=== PATIENT | male | born 1965 | race Caucasian/White ===

== ENCOUNTER → 2017-12-15 14:29 | Outpatient (CLI) | payer OTHER, SELFPAY ==
[2017-12-15 15:41] LABS: PSA,Total - Annual Screen 1.68 ng/mL (0.00-4.00)
== END ==
PROVIDERS: Family Provider Family Medicine; PCP Family Medicine; Visit Provider Family Medicine
DX: Z00.00 Encounter for general adult medical examination without abnormal findings (principal)
CPT/HCPCS: 36415; 84153; G0103

== ENCOUNTER → 2018-02-02 16:37 | Outpatient (CLI) | payer OTHER, SELFPAY ==
[2018-02-02 17:56] LABS: Protein, Urine (Random) 42.3 mg/dL (<11.9); Protein:Creat Ratio 355 mg/g CRE (0-200)
[2018-02-02 17:58] LABS: Albumin, Serum 3.7 g/dL (3.2-5.0); BUN 16 mg/dL (7-18); BUN/Creat Ratio 20.8 RATIO (10-20); Calcium,Total 9.1 mg/dL (8.5-10.1); Chloride 104 mmol/L (98-107); Creatinine, Serum 0.77 mg/dL (0.70-1.30); EST Glomerular Filtration Rate 113 mL/min (>60); Est Glom Filt Rate - Afr Amer 136 mL/min (>60); Glucose 84 mg/dL (74-106); Phosphorus 3.3 mg/dL (2.5-4.9); Potassium 3.9 mmol/L (3.5-5.1); Sodium Level 136 mmol/L (136-145)
== END ==
PROVIDERS: Family Provider Family Medicine; PCP Family Medicine; Referring Provider Internal Medicine Nephrology; Visit Provider Internal Medicine Nephrology
DX: R80.9 Proteinuria, unspecified (principal)
CPT/HCPCS: 36415; 80069; 82570; 84156

== ENCOUNTER → 2018-02-16 14:38 | Outpatient (CLI) | payer OTHER, SELFPAY ==
--- NOTE | 2018-02-16 14:52 | CT_ITS ---
STUDY: CT ABDOMEN AND PELVIS WITHOUT CONTRAST REASON FOR EXAM: Male, 52 years old. Right-sided pain with urination RADIATION DOSAGE (If Supplied By Facility): CTDIvol = ( 14.59 ) mGy, DLP = ( 715.82 ) mGycm TECHNIQUE: Transaxial images were obtained from the dome of the diaphragm to the symphysis pubis without oral contrast, and without intravenous contrast. Sagittal and coronal images were reconstructed. Individualized dose optimization techniques were used for this CT. COMPARISON: 05/29/2013 FINDINGS: The visualized lung bases are unremarkable. The visualized portions of the heart are within normal limits. Normal liver. The gallbladder is contracted. Normal spleen. Normal pancreas. Normal bilateral adrenal glands. Mild right hydronephrosis is noted with mild right hydroureter. There is a stone just at the right UVJ measuring 3.6 mm. There is 2 other punctate nonobstructing right nephrolith. Otherwise, normal right kidney. Normal left kidney without evidence of stones or obstruction. Normal visualized stomach. Normal small intestine. There are multiple colonic diverticula consistent with diverticulosis. The appendix is visualized and appears normal. There is diffuse atherosclerotic calcification of the abdominal aorta, without a demonstrated aneurysm. Normal inferior vena cava. Normal retroperitoneum. Normal urinary bladder. There are prostatic calcifications. Normal abdominal wall. There are diffuse degenerative changes of the visualized lumbar spine. CT/Abdomen/Pelvis without Cont IMPRESSION: Mild right hydronephrosis with right hydroureter. Stone at the right UVJ as detailed above. Several other punctate nonobstructing right nephroliths. Electronically Signed: Eriberto Oro DO at 11:46 EDT Tel , Service support ,
== END ==
PROVIDERS: Family Provider Family Medicine; PCP Family Medicine; Referring Provider Internal Medicine Nephrology; Visit Provider Internal Medicine Nephrology
DX: N20.0 Calculus of kidney (principal)
CPT/HCPCS: 74176

== ENCOUNTER → 2018-08-06 | Outpatient (CLI) | payer OTHER, SELFPAY ==
[2018-08-06 14:13] LABS: Color, Urine Yellow (Yellow); Glucose, Dipstick Normal (Normal); Ketone-Dipstick 15 mg/dl (Negative); Leukocyte Esterase-Dipstick Negative /ul (Negative); Nitrite-Dipstick Negative (Negative); Occult Blood-Urine Negative /ul (Negative); Protein-Dipstick 30 mg/dl (Negative); Urine Bilirubin Dipstick Negative (Negative); Urine Clarity Clear (Clear); Urine Urobilinogen Normal (Normal)
[2018-08-06 14:17] LABS: Absolute Lymphocyte Count 1.33 X10^3/ul (0.83-4.51); Absolute Neutrophil Count 3.3 X10^3/uL (2.0-7.7); Eosinophil# 0.06 X10^3/uL; Eosinophils% 1.2 % (0-5); Hematocrit 42.9 % (40-54); Hemoglobin 14.5 g/dl (13.0-16.5); Lymphocyte # 1.33 X10^3/ul (4.0); Lymphocyte % 26.1 % (19-41); Mean Corp Hgb Conc 33.8 g/gl (32-36); Mean Corpuscular Volume 97.5 fL (80-94); Mean Platelet Vol. 9.8 fl (6.2-12.0); Monocyte# 0.39 X10^3/uL; Monocyte% 7.7 % (0-10); Neutrophil # 3.31 X10^3/uL (2.7-7.7); POSITIVE COUNT NO; POSITIVE DIFFERENTIAL NO; POSITIVE MORPHOLOGY NO; Platelet Count 188 K/mm3 (150-450); RBC Distribution Width CV 12.8 % (11.6-14.6); RBC Distribution Width SD 45.7 fl (35.1-43.9); White Blood Count 5.1 K/mm3 (4.4-11.0)
[2018-08-06 14:31] LABS: Albumin, Serum 3.7 g/dL (3.2-5.0); BUN 20 mg/dL (7-18); BUN/Creat Ratio 24.9 RATIO (10-20); Calcium,Total 8.9 mg/dL (8.5-10.1); Chloride 105 mmol/L (98-107); EST Glomerular Filtration Rate 107 mL/min (>60); Est Glom Filt Rate - Afr Amer 129 mL/min (>60); Glucose 84 mg/dL (74-106); Phosphorus 2.7 mg/dL (2.5-4.9); Potassium 4.2 mmol/L (3.5-5.1); Sodium Level 139 mmol/L (136-145)
== END | disposition home or self-care (01) ==
LOC: MTLAB 12:49
PROVIDERS: Family Provider Family Medicine; PCP Family Medicine; Referring Provider Internal Medicine Nephrology; Visit Provider Internal Medicine Nephrology
DX: N20.2 Calculus of kidney with calculus of ureter (principal)
CPT/HCPCS: 36415; 80069; 81002; 83735; 85025

== ENCOUNTER → 2018-10-25 16:28 | Outpatient (CLI) | payer OTHER, SELFPAY ==
--- NOTE | 2018-10-25 16:32 | RAD_ITS ---
STUDY: X-RAY - LEFT KNEE REASON FOR EXAM: Male, 53 years old. Orthopedic evaluation TECHNIQUE: 4 view(s) of the knee. COMPARISON: None. FINDINGS: Normal visualized distal femur. Normal visualized proximal tibia and fibula. Normal proximal tibiofibular articulation. There are calcifications along the proximal medial tibia, likely remote MCL injury. Normal medial femorotibial compartment. Normal lateral femorotibial compartment. Normal patellofemoral articulation. There is minor meniscal chondrocalcinosis, an age-related finding. The soft tissue structures are unremarkable. RAD/Knee 4 or More Views IMPRESSION: No acute osseous injury. Minor age-related changes. Electronically Signed: Tristan Coats, at 17:54 EDT Tel , Service support ,
== END ==
PROVIDERS: Family Provider Family Medicine; PCP Family Medicine; Referring Provider Family Medicine; Visit Provider Family Medicine
DX: M25.562 Pain in left knee (principal)
CPT/HCPCS: 73564

== ENCOUNTER → 2018-10-26 13:18 | Outpatient (CLI) | payer OTHER, SELFPAY ==
--- NOTE | 2018-10-26 13:25 | VDLE_ITS ---
Reason For Study: pain in calf Procedure LEFT Exam performed in department. GSV is normal. The exam was diagnostic. CFV is compressible, spontaneous, phasic, A preliminary report was called and/or faxed competent, and demonstrates normal to Dr. Bronson's office. augmentation. FV is compressible, spontaneous, phasic, competent and demonstrates normal augmentation. POP V is compressible, spontaneous, phasic, competent and demonstrates normal augmentation. T/P Trunk is compressible. PTV is compressible. Peroneal V and Soleus V are dilated and noncompressible. Interpretation Summary Acute deep vein thrombosis is noted in the left peroneal vein. Acute deep vein thrombosis is noted in the left soleus vein. The remainder of the left lower extremity deep venous system is patent and compressible. Valvular competence appears intact within the proximal deep venous system on the left . The left greater saphenous vein appears patent and compressible segmentally. Ordering Physician: Nicole Bronson Performed By: Gerardo Higgins RVT
== END ==
PROVIDERS: Family Provider Family Medicine; PCP Family Medicine; Referring Provider Family Medicine; Visit Provider Family Medicine
DX: M79.662 Pain in left lower leg (principal)
CPT/HCPCS: 93971

== ENCOUNTER → 2018-12-08 15:50 | Outpatient (CLI) | payer OTHER, SELFPAY ==
[2018-12-08 18:18] LABS: PSA,Total - Annual Screen 0.81 ng/mL (0.00-4.00)
== END ==
PROVIDERS: Family Provider Family Medicine; PCP Family Medicine; Referring Provider Family Medicine; Visit Provider Family Medicine
DX: Z12.5 Encounter for screening for malignant neoplasm of prostate (principal)
CPT/HCPCS: 36415; 84153; G0103

== ENCOUNTER → 2019-01-17 09:52 | Outpatient (CLI) | payer OTHER, SELFPAY ==
--- NOTE | 2019-01-17 09:55 | RAD_ITS ---
STUDY: X-RAY - RIGHT SHOULDER REASON FOR EXAM: Male, 53 years old. Pain TECHNIQUE: 4 view(s) of the shoulder. COMPARISON: None. FINDINGS: Narrowed glenohumeral articulation. Narrowed acromioclavicular joint. Normal acromion. Normal humeral head and visualized proximal humerus. The soft tissue structures are unremarkable. Normal visualized pulmonary apex. RAD/Shoulder min 2 Views IMPRESSION: Degenerative changes. No evidence for acute fracture or other significant bony pathology. Electronically Signed: Sadiq Hernández MD at 20:57 EDT , Service support ,
== END ==
PROVIDERS: Family Provider Family Medicine; PCP Family Medicine; Referring Provider Family Medicine; Visit Provider Family Medicine
DX: M79.601 Pain in right arm (principal)
CPT/HCPCS: 73030

== ENCOUNTER → 2019-06-27 15:32 | Outpatient (CLI) | payer OTHER, SELFPAY ==
--- NOTE | 2019-06-27 15:35 | VDLE_ITS ---
Reason For Study: RLE PAIN RIGHT LEFT GSV is normal. CFV is compressible, spontaneous, phasic, CFV is compressible, spontaneous, phasic, competent, and demonstrates normal competent and demonstrates normal augmentation. augmentation. FV is compressible, spontaneous, phasic, competent and demonstrates normal augmentation. POP V is compressible, spontaneous, phasic, competent and demonstrates normal augmentation. T/P Trunk is compressible. PTV is compressible. RT PerV is compressible. Gastrocnemius V, SSV, & Soleus V are compressible. Varicose Veins noted to be hypoechoic, dilated and noncompressible at medial knee where patient C/O pain. Procedure Exam performed in department. The exam was diagnostic. A preliminary report was called and/or faxed to Dr. Bronson @ 4:00 pm @ [phone]. Interpretation Summary Deep veins of the right lower extremity are patent and compressible segmentally. There is no evidence of right lower extremity deep vein thrombosis. Valvular competence appears intact within the proximal deep venous system on the right . The right great saphenous vein appears patent and compressible segmentally. The right small saphenous vein is patent and compressible. Acute superficial thrombophlebitis is noted involving superficial varicosities medial to the right knee. Ordering Physician: Nicole Bronson Referring Physician: Nicole Bronson Performed By: Martita Benton, SHARON, RVT
== END ==
PROVIDERS: PCP Family Medicine; Referring Provider Family Medicine; Visit Provider Family Medicine
DX: M79.604 Pain in right leg (principal)
CPT/HCPCS: 93971

== ENCOUNTER → 2019-07-05 | Outpatient (CLI) | payer OTHER, SELFPAY ==
[2019-07-05 17:44] LABS: Absolute Lymphocyte Count 1.08 X10^3/uL (0.83-4.51); Absolute Neutrophil Count 3.2 X10^3/uL (2.0-7.7); Basophil# 0.01 X10^3/uL; Basophil% 0.2 % (0-1); Eosinophil# 0.07 X10^3/uL; Eosinophils% 1.5 % (0-5); Hematocrit 43.9 % (40-54); Hemoglobin 14.8 g/dL (13.0-16.5); Lymphocyte # 1.08 X10^3/ul (4.0); Lymphocyte % 22.5 % (19-41); Mean Corp Hgb Conc 33.7 g/dL (32-36); Mean Corpuscular Hgb 33.2 pg (27.0-32.0); Mean Corpuscular Volume 98.4 fL (80-94); Mean Platelet Vol. 9.8 fl (6.2-12.0); Monocyte# 0.42 X10^3/uL; Monocyte% 8.7 % (0-10); NRBC Flagged by Analyzer 0 % (0-5); Neutrophil # 3.22 X10^3/uL (2.7-7.7); Neutrophil % 66.9 % (47-70); Platelet Count 213 K/mm3 (150-450); RBC Distribution Width CV 12.4 % (11.6-14.6); RBC Distribution Width SD 44.8 fl (35.1-43.9); Red Blood Count 4.46 M/mm3 (4.6-6.2); White Blood Count 4.8 K/mm3 (4.4-11.0)
[2019-07-05 17:54] LABS: BUN 20 mg/dL (7-18); Creatinine, Serum 0.72 mg/dL (0.70-1.30); Glucose 99 mg/dL (74-106)
[2019-07-05 17:55] LABS: ALB/GLOB Ratio 1.1 RATIO (0.9-2.4); AST(SGOT) 28 U/L (15-37); Alanine Aminotransfer ALT/SGPT 49 U/L (16-61); Albumin, Serum 3.5 g/dL (3.2-5.0); Alkaline Phosphatase 78 U/L (45-117); Anion Gap 7 (5-15); BUN/Creat Ratio 27.7 RATIO (10-20); Calcium,Total 8.5 mg/dL (8.5-10.1); Chloride 109 mmol/L (98-107); EST Glomerular Filtration Rate 121 mL/min (>60); Est Glom Filt Rate - Afr Amer 146 mL/min (>60); Globulin 3.3 g/dL (2.2-4.2); Potassium 4.2 mmol/L (3.5-5.1); Protein, Total 6.8 g/dL (6.4-8.2); Sodium Level 141 mmol/L (136-145)
== END | disposition home or self-care (01) ==
LOC: MFPLAB 16:10
PROVIDERS: PCP Family Medicine; Referring Provider Family Medicine; Visit Provider Family Medicine
DX: Z01.818 Encounter for other preprocedural examination (principal)
CPT/HCPCS: 36415; 80053; 85025

== ENCOUNTER → 2019-12-21 16:20 | Outpatient (CLI) | payer OTHER, SELFPAY ==
[2019-12-21 18:14] LABS: PSA,Total - Annual Screen 0.63 ng/mL (0.00-4.00)
== END ==
PROVIDERS: PCP Family Medicine; Referring Provider Family Medicine; Visit Provider Family Medicine
DX: Z12.5 Encounter for screening for malignant neoplasm of prostate (principal)
CPT/HCPCS: 36415; 84153; G0103

== ENCOUNTER → 2020-01-30 10:10 | Outpatient (CLI) | payer OTHER, SELFPAY ==
[2020-01-30 12:43] LABS: Hemoglobin 15.9 g/dL (13.0-16.5); Mean Corp Hgb Conc 33.1 g/dL (32-36); Mean Corpuscular Hgb 33.1 pg (27.0-32.0); Mean Corpuscular Volume 99.8 fL (80-94); Mean Platelet Vol. 9.7 fl (6.2-12.0); Platelet Count 207 K/mm3 (150-450); RBC Distribution Width CV 12.7 % (11.6-14.6); RBC Distribution Width SD 47.5 fl (35.1-43.9); Red Blood Count 4.81 M/mm3 (4.6-6.2); White Blood Count 5.1 K/mm3 (4.4-11.0)
[2020-01-30 13:16] LABS: Albumin, Serum 3.6 g/dL (3.2-5.0); BUN 17 mg/dL (7-18); Calcium,Total 9.1 mg/dL (8.5-10.1); Chloride 108 mmol/L (98-107); Creatinine, Serum 0.71 mg/dL (0.70-1.30); EST Glomerular Filtration Rate 123 mL/min (>60); Est Glom Filt Rate - Afr Amer 149 mL/min (>60); Glucose 88 mg/dL (74-106); Phosphorus 2.7 mg/dL (2.5-4.9); Sodium Level 139 mmol/L (136-145)
[2020-01-30 13:32] LABS: Protein, Urine (Random) 40.6 mg/dL (<11.9); Protein:Creat Ratio 338 mg/g CRE (0-200)
== END ==
PROVIDERS: PCP Family Medicine; Referring Provider Internal Medicine Nephrology; Visit Provider Internal Medicine Nephrology
DX: R80.9 Proteinuria, unspecified (principal)
CPT/HCPCS: 36415; 80069; 82570; 84156; 85027

== ENCOUNTER 2020-05-14 06:42 | Emergency (ER) | payer OTHER, SELFPAY ==
[2020-05-14 06:42] VITALS: BP 126/82; PULSE 87; RESP 16; TEMP 36.4; O2SAT 97; BMI 33.0
--- NOTE | 2020-05-14 07:02 | CT_ITS ---
STUDY: CT ABDOMEN AND PELVIS WITHOUT CONTRAST REASON FOR EXAM: Male, 55 years old. RIGHT FLANK PAIN RADIATES TO RIGHT GROIN -- HX-KIDNEY STONES RADIATION DOSAGE (If Supplied By Facility): CTDIvol = ( 16.34 ) mGy, DLP = ( 816.66 ) mGycm TECHNIQUE: Transaxial images were obtained from the dome of the diaphragm to the symphysis pubis without oral contrast, and without intravenous contrast. Sagittal and coronal images were reconstructed. Individualized dose optimization techniques were used for this CT. COMPARISON: 02/16/2018. CT scan dated 05/29/2013. FINDINGS: Lung bases: Mild atelectasis/scarring. COPD. Right basilar bronchiectasis. Ovoid atelectasis versus airway plugging at the right lung base (axial image 18 series 2). Right lung base pleural calcification (axial image 24 series 2). Heart: Mild coronary artery disease. Liver: Unremarkable. Gallbladder/biliary ducts: Unremarkable. Pancreas: Mild pancreatic atrophy. Spleen: Unremarkable. Adrenal glands: Unremarkable. Kidneys/ureters/bladder: 4 mm right ureterovesicular junction stone with mild right hydroureteronephrosis. Punctate 2 mm left nonobstructing renal stone (axial image 52 series 2). No significant urinary bladder wall thickening. Nondilated left ureter. Prostate: Prostate calcifications. Large bowel/small bowel: Constipation. No acute small bowel or large bowel process. Appendix: Unremarkable (axial image 122 series 2). Gastroesophageal junction/stomach: Small hiatal hernia. Retroperitoneum/lymph nodes: No intra-abdominal free air. No ascites. No pathologically enlarged lymph nodes. Vascular: Vascular calcifications. Osseous structures: Degenerative changes. No acute process. Subcutaneous/soft tissues: Tiny fat-containing umbilical and inguinal hernias. No acute complication. CT/Abdomen/Pelvis without Cont IMPRESSION: 4 mm right UVJ stone with mild right hydroureteronephrosis Punctate 2 mm nonobstructing left renal stone Right lung base bronchiectasis with bronchial plugging/ovoid atelectasis (statistically benign similar to 2013) Additional nonemergent findings, as above Electronically Signed: Gorge Jaramillo DO at 8:15 EST Tel , Service support ,
--- NOTE | 2020-05-14 07:02 | ED.VIS.GEN ---
History of Present Illness Chief Complaint: Flank Pain Informant: Patient Narrative: 55-year-old male with a previous history of lymphoma and kidney stones presents with abdominal pain and hematuria. Patient states about a week ago he had some pain in the right flank. It went away and he was fine until the middle the night when he developed severe pain in his right lower quadrant suprapubic region. He states it got a little bit better but the pain returned. He had nausea and vomiting. He is notes urinary frequency with hematuria. He is on Eliquis due to prior DVT. He notes that he has a history of renal insufficiency. He reports that he has never had to have surgery for kidney stones. - Past Medical History (1) Chronic venous insufficiency Status: Chronic (2) Renal insufficiency, mild Status: Chronic Past Medical History - Allergies and Home Meds Allergies/Adverse Reactions: Allergies No Known Allergies Allergy (Verified 05/14/20 06:46) Primary Care Physician: Nicole Bronson MD [Primary Care Provider] - Past Medical History: - - Non Hodgkins Lymphoma Surgical History: - - The patient has undergone bone marrow transplantation in 1998. Lymph node biopsy of the neck was performed in 1997 leading to his diagnosis of non-Hodgkin's lymphoma. Smoking Status: Current every day smoker Drugs: None - Family History Paternal Family History: Reports: - - The patient's father is 74 years of age with a history of lower extremity vein problems. Patient's father has multiple medical problems. Maternal Family History: Reports: - - The patient's mother is 69 years of age with a history of venous disease, back problems, osteoporosis, and peripheral neuropathy. Review of Systems General: Denies: Chills, Fever, Sweats Eyes: Denies: Visual changes - bilaterally, Diplopia ENT: Denies: Rhinorrhea, Sore throat Cardiovascular: Denies: Chest pain, Palpitations Respiratory: Denies: Dyspnea, Cough, Dyspnea on exertion Gastrointestinal: Reports: Abdominal pain, Nausea, Vomiting. Denies: Diarrhea, Melena, Hematochezia Genitourinary: Reports: Hematuria, Frequency. Denies: Dysuria Musculoskeletal: Denies: Back pain, Extremity Pain Skin: Denies: Rash, Wounds Neurological: Denies: Headache, Weakness, Numbness Physical Exam Vital Signs/Narrative: Vital Signs Temp Pulse Resp BP Pulse Ox 05/14/20 06:42 97.6 F L 87 16 126/82 H 97 Inital Vital Signs reviewed: Yes General: Well nourished, Well developed, No Acute Distress Head: Normocephalic, Atraumatic Eyes: Perrl, EOMI ENT: Moist mucous membranes, No rhinorrhea Neck: Supple, Nontender Cardiovascular: Regular rate, Regular rhythm, No murmurs Respiratory: No distress, CTA bilaterally, Chest nontender Abdomen: Soft, Nontender, Nondistended, Normal bowel sounds Back: Nontender, Normal Inspection Extremities: Nontender, No edema Skin: Normal color, No rash Neurological: Alert, Oriented x3, Cranial nerves II-XII grossly intact, Normal Strength, Normal Sensation Psychological: Normal affect, Normal Mood Diagnostic/Tx/Re-eval Laboratory Last Values WBC 6.4 K/mm3 (4.4-11.0) 05/14/20 07:20 RBC 4.81 M/mm3 (4.6-6.2) 05/14/20 07:20 Hgb 16.1 g/dL (13.0-16.5) 05/14/20 07:20 Hct 47.8 % (40-54) 05/14/20 07:20 MCV 99.4 fL (80-94) H 05/14/20 07:20 MCH 33.5 pg (27.0-32.0) H 05/14/20 07:20 MCHC 33.7 g/dL (32-36) 05/14/20 07:20 RDW Std Deviation 46.5 fl (35.1-43.9) H 05/14/20 07:20 RDW Coeff of Kris 12.5 % (11.6-14.6) 05/14/20 07:20 Plt Count 206 K/mm3 (150-450) 05/14/20 07:20 MPV 9.4 fl (6.2-12.0) 05/14/20 07:20 Immature Gran % (Auto) 0.500 % (0.0-0.9) 05/14/20 07:20 Neut % (Auto) 82.9 % (47-70) H 05/14/20 07:20 Lymph % (Auto) 11.3 % (19-41) L 05/14/20 07:20 [place] % (Auto) 4.6 % (0-10) 05/14/20 07:20 Eos % (Auto) 0.5 % (0-5) 05/14/20 07:20 Baso % (Auto) 0.2 % (0-1) 05/14/20 07:20 Absolute Neuts (auto) 5.3 X10^3/uL (2.0-7.7) 05/14/20 07:20 Absolute Lymphs (auto) 0.72 X10^3/uL (0.83-4.51) L 05/14/20 07:20 Nucleated RBC % 0 % (0-5) 05/14/20 07:20 Sodium 138 mmol/L (136-145) 05/14/20 07:20 Potassium 4.1 mmol/L (3.5-5.1) 05/14/20 07:20 Chloride 104 mmol/L (98-107) 05/14/20 07:20 Carbon Dioxide 28.0 mmol/L (21.0-32.0) 05/14/20 07:20 Anion Gap 6 (5-15) 05/14/20 07:20 BUN 19 mg/dL (7-18) H 05/14/20 07:20 Creatinine 0.84 mg/dL (0.70-1.30) 05/14/20 07:20 Estim Creat Clear Calc 102.60 ml/min 05/14/20 07:20 Est GFR (MDRD) Af Amer 122 mL/min (>60) 05/14/20 07:20 Est GFR (MDRD) Non-Af 101 mL/min (>60) 05/14/20 07:20 BUN/Creatinine Ratio 22.6 RATIO (10-20) H 05/14/20 07:20 Glucose 112 mg/dL (74-106) H 05/14/20 07:20 Calcium 8.9 mg/dL (8.5-10.1) 05/14/20 07:20 Urine Color Teresa (Yellow) 05/14/20 07:20 Urine Clarity Cloudy (Clear) 05/14/20 07:20 Urine pH 6.0 (5.0 - 8.0) 05/14/20 07:20 Ur Specific [place] 1.010 (1.002-1.030) 05/14/20 07:20 Urine Protein 30 mg/dl (Negative) H 05/14/20 07:20 Urine Glucose (UA) Normal mg/dl (Normal) 05/14/20 07:20 Urine Ketones Negative mg/dl (Negative) 05/14/20 07:20 Urine Occult Blood 250 /ul (Negative) H 05/14/20 07:20 Urine Nitrite Negative (Negative) 05/14/20 07:20 Urine Bilirubin Negative mg/dL (Negative) 05/14/20 07:20 Urine Urobilinogen Normal mg/dl (Normal) 05/14/20 07:20 Ur Leukocyte Esterase 25 /ul (Negative) H 05/14/20 07:20 Urine RBC 50-100 SEEN /hpf (0-5) 05/14/20 07:20 Urine WBC 0-5 SEEN /hpf (0-5) 05/14/20 07:20 Ur Squamous Epith Cells 0-5 SEEN /hpf (0-5) 05/14/20 07:20 Urine Bacteria RARE /hpf (None Seen) 05/14/20 07:20 Urine Mucus 0 SEEN /hpf (<or=2+) 05/14/20 07:20 - Medical Decision Making Patient with pain-free upon my examination. CBC and BMP are negative. Normal white count normal creatinine. Urinalysis with 50-100 red blood cells no overt infection. CT of the abdomen pelvis demonstrates a distal stone at the level of the bladder. Patient will be discharged home with a prescription for [place]. Following up with urology if not improving. ED Disposition - Plan for ED Patient: Disposition: Home or Assisted Living Diagnosis: Ureterolithiasis, Acute abdominal pain, Hematuria Instructions: ED Kidney Stone w/ Colic Prescriptions: Hydrocodone Bitart/Apap 5-325 [[place] 5MG-325MG] 1 tab PO Q6H PRN PRN 3 Days #12 tab PRN Reason: Pain Prescription Printed Referrals: Nicole Bronson MD [Primary Care Provider] - As Needed Robert Michelle MD [STAFF PHYSICIAN] - (call for urologic follow up)
[2020-05-14] MEDS: 0.9% Normal Saline 1,000 ML 999 ML IV (07:21)
[2020-05-14 07:31] LABS: Mucous, Urine 0 SEEN /hpf (<or=2+)
[2020-05-14 07:33] LABS: Absolute Lymphocyte Count 0.72 X10^3/uL (0.83-4.51); Absolute Neutrophil Count 5.3 X10^3/uL (2.0-7.7); Basophil# 0.01 X10^3/uL; Basophil% 0.2 % (0-1); Eosinophil# 0.03 X10^3/uL; Eosinophils% 0.5 % (0-5); Hematocrit 47.8 % (40-54); Hemoglobin 16.1 g/dL (13.0-16.5); Lymphocyte # 0.72 X10^3/ul (4.0); Lymphocyte % 11.3 % (19-41); Mean Corp Hgb Conc 33.7 g/dL (32-36); Mean Corpuscular Hgb 33.5 pg (27.0-32.0); Mean Corpuscular Volume 99.4 fL (80-94); Mean Platelet Vol. 9.4 fl (6.2-12.0); Monocyte# 0.29 X10^3/uL; Monocyte% 4.6 % (0-10); NRBC Flagged by Analyzer 0 % (0-5); Neutrophil # 5.27 X10^3/uL (2.7-7.7); Neutrophil % 82.9 % (47-70); Platelet Count 206 K/mm3 (150-450); RBC Distribution Width CV 12.5 % (11.6-14.6); RBC Distribution Width SD 46.5 fl (35.1-43.9); Red Blood Count 4.81 M/mm3 (4.6-6.2); White Blood Count 6.4 K/mm3 (4.4-11.0)
[2020-05-14 07:34] LABS: Color, Urine Amber (Yellow); Glucose, Dipstick Normal (Normal); Ketone-Dipstick Negative (Negative); Leukocyte Esterase-Dipstick 25 /ul (Negative); Nitrite-Dipstick Negative (Negative); Occult Blood-Urine 250 /ul (Negative); Protein-Dipstick 30 mg/dl (Negative); Urine Bilirubin Dipstick Negative (Negative); Urine Clarity Cloudy (Clear); Urine Urobilinogen Normal (Normal)
[2020-05-14 07:40] LABS: Bacteria RARE /hpf (None Seen); Red Blood Cells-Urine 50-100 SEEN /hpf (0-5); Squamous Epithelial Cells - UA 0-5 SEEN /hpf (0-5); White Blood Cells 0-5 SEEN /hpf (0-5)
[2020-05-14 07:46] LABS: Anion Gap 6 (5-15); BUN 19 mg/dL (7-18); BUN/Creat Ratio 22.6 RATIO (10-20); Calcium,Total 8.9 mg/dL (8.5-10.1); Chloride 104 mmol/L (98-107); Creatinine, Serum 0.84 mg/dL (0.70-1.30); EST Glomerular Filtration Rate 101 mL/min (>60); Est Glom Filt Rate - Afr Amer 122 mL/min (>60); Glucose 112 mg/dL (74-106); Potassium 4.1 mmol/L (3.5-5.1); Sodium Level 138 mmol/L (136-145)
== END 2020-05-14 08:26 | disposition home or self-care (01) ==
PROVIDERS: Emergency Provider Emergency Medicine; PCP Family Medicine
DX: N13.2 Hydronephrosis with renal and ureteral calculous obstruction (principal); I87.2 Venous insufficiency (chronic) (peripheral); F17.200 Nicotine dependence, unspecified, uncomplicated; Z79.01 Long term (current) use of anticoagulants; Z79.899 Other long term (current) drug therapy; Z87.442 Personal history of urinary calculi; Z86.718 Personal history of other venous thrombosis and embolism; Z85.72 Personal history of non-Hodgkin lymphomas
CPT/HCPCS: 74176; 80048; 81001; 85025; 96360; 99283; J7030; A4216

== ENCOUNTER → 2020-06-07 16:33 | Outpatient (CLI) | payer OTHER, SELFPAY ==
[2020-05-14 06:42] VITALS: BMI 33.0
[2020-06-07 18:34] LABS: T4 Free Direct 1.17 ng/dL (0.76-1.46); Thyroid Stim Hormone (TSH) 0.43 uIU/mL (0.358-3.74)
== END ==
PROVIDERS: PCP Family Medicine; Referring Provider Internal Medicine Pulmonary Disease; Visit Provider Internal Medicine Pulmonary Disease
DX: G47.10 Hypersomnia, unspecified (principal)
CPT/HCPCS: 36415; 84439; 84443

== ENCOUNTER → 2021-01-11 11:04 | Outpatient (CLI) | payer OTHER, SELFPAY ==
[2021-01-11 12:53] LABS: PSA,Total - Annual Screen 0.56 ng/mL (0.00-4.00)
== END ==
PROVIDERS: PCP Family Medicine; Referring Provider Family Medicine; Visit Provider Family Medicine
DX: Z00.00 Encounter for general adult medical examination without abnormal findings (principal)
CPT/HCPCS: 36415; 84153; G0103

== ENCOUNTER → 2021-01-23 07:05 | Outpatient (CLI) | payer OTHER, SELFPAY ==
[2021-01-23 10:25] LABS: Albumin, Serum 3.4 g/dL (3.2-5.0); BUN 24 mg/dL (7-18); BUN/Creat Ratio 32.8 RATIO (10-20); Calcium,Total 9.2 mg/dL (8.5-10.1); Chloride 107 mmol/L (98-107); Creatinine, Serum 0.73 mg/dL (0.70-1.30); EST Glomerular Filtration Rate 118 mL/min (>60); Est Glom Filt Rate - Afr Amer 143 mL/min (>60); Glucose 99 mg/dL (74-106); Potassium 4.2 mmol/L (3.5-5.1); Protein, Urine (Random) 23.2 mg/dL (<11.9); Protein:Creat Ratio 183 mg/g CRE (0-200); Sodium Level 140 mmol/L (136-145)
== END ==
PROVIDERS: Internal Medicine Nephrology; PCP Family Medicine; Referring Provider Student in an Organized Health Care Education/Training Program; Visit Provider Student in an Organized Health Care Education/Training Program
DX: R80.9 Proteinuria, unspecified (principal)
CPT/HCPCS: 36415; 80069; 82570; 84156

== ENCOUNTER → 2022-01-03 | Outpatient (CLI) | payer OTHER, SELFPAY ==
--- NOTE | 2022-01-03 14:18 | VDLE_ITS ---
Reason For Study: Pain RIGHT GSV is normal. CFV is compressible, spontaneous, phasic, competent and demonstrates normal augmentation. FV is compressible, spontaneous, phasic, competent and demonstrates normal augmentation. POP V is compressible, spontaneous, phasic, competent and demonstrates normal augmentation. T/P Trunk is compressible. PTV is compressible. RT PerV is compressible. Varicosity at Rt knee is dilated and non compressible consistent with acute SVT. Procedure This is a venous duplex using B-mode, color flow and spectral Doppler. Exam performed in department. A preliminary report was called and/or faxed to Jaida CARVALHO. VL/Venous Duplex US, Unilateral Interpretation Summary Superficial venous thrombus visualized in varicosities adjacent to knee Deep veins of the right lower extremity are patent and compressible segmentally . There is no evidence of right lower extremity deep vein thrombosis. Ordering Physician: Nicole Bronson Referring Physician: Nicole Bronson Performed By: Reta Pena, SHARON, RVT
== END | disposition home or self-care (01) ==
PROVIDERS: PCP Family Medicine; Referring Provider Family Medicine; Visit Provider Family Medicine
DX: M79.604 Pain in right leg (principal)
CPT/HCPCS: 93971

== ENCOUNTER → 2022-01-16 | Outpatient (CLI) | payer OTHER, SELFPAY ==
[2022-01-16 17:59] LABS: PSA,Total - Annual Screen 0.53 ng/mL (0.00-4.00)
== END | disposition home or self-care (01) ==
LOC: MFPLAB 16:16
PROVIDERS: PCP Family Medicine; Referring Provider Family Medicine; Visit Provider Family Medicine
DX: Z00.00 Encounter for general adult medical examination without abnormal findings (principal)
CPT/HCPCS: 36415; 84153; G0103

== ENCOUNTER → 2022-01-20 | Outpatient (CLI) | payer OTHER, SELFPAY ==
[2022-01-20 18:23] LABS: Anion Gap 7 (5-15); BUN 24 mg/dL (7-18); Calcium,Total 9.4 mg/dL (8.5-10.1); Chloride 108 mmol/L (98-107); Creatinine, Serum 0.83 mg/dL (0.70-1.30); EST Glomerular Filtration Rate 102 mL/min (>60); Est Glom Filt Rate - Afr Amer 123 mL/min (>60); Glucose 93 mg/dL (74-106); Potassium 4.5 mmol/L (3.5-5.1); Protein, Urine (Random) 18.8 mg/dL (<11.9); Protein:Creat Ratio 230 mg/g CRE (0-200); Sodium Level 138 mmol/L (136-145)
== END | disposition home or self-care (01) ==
LOC: MFPLAB 16:29
PROVIDERS: PCP Family Medicine; Visit Provider Internal Medicine Nephrology
DX: R80.9 Proteinuria, unspecified (principal)
CPT/HCPCS: 36415; 80048; 82570; 84156

== ENCOUNTER 2022-02-15 11:44 | Emergency (ER) | payer OTHER, SELFPAY ==
[2022-02-15 11:45] VITALS: BP 136/89; PULSE 89; RESP 16; TEMP 36.5; O2SAT 95; BMI 33.0
--- NOTE | 2022-02-15 12:11 | VDLE_ITS ---
Reason For Study: LEG SWELLING RIGHT LEFT CFV is compressible, spontaneous, competent CFV is compressible, spontaneous, competent, and demonstrates pulsatile venous flow. and demonstrates pulsatile venous flow. FV is compressible, spontaneous, competent and demonstrates pulsatile venous flow. POP V is compressible, spontaneous, phasic, competent and demonstrates normal augmentation. T/P Trunk is compressible. PTV is compressible. RT PerV is compressible. GSV prox thigh is compressible GSV distal thigh is noncompressible s/p EVLA Varicose Veins noted to be hypoechoic, dilated and noncompressible at distal thigh and knee where patient C/O pain. Procedure This is a venous duplex using B-mode, color flow and spectral Doppler. Exam performed portable in ED. The exam was diagnostic. A preliminary report was called and/or faxed to Dr. Harper. VL/Venous Duplex US, Unilateral Interpretation Summary Deep veins of the right lower extremity are patent and compressible segmentally . There is no evidence of right lower extremity deep vein thrombosis. Valvular competence yee ears intact within the proximal deep venous system on the right . The right great saphenous vein i n the proximal thigh is patent and compressible. The right great saphenous vein in the distal thigh is non-compressible, consistent with a prior endothermal ablation procedure. Acute superficial throm bophlebitis is noted involving superficial varicosities in the distal thigh and at knee level. Pulsa tile venous flow is noted in the deep venous system which may be indicative of elevated central sameera ous pressure (i.e. congestive heart failure, pulmonary hypertension, etc.). Clinical correlation i s advised. Ordering Physician: Orlando Harper Referring Physician: Nicole Bronson M.D. Performed By: Joni Joseph RVT
--- NOTE | 2022-02-15 12:13 | EDS_ITS ---
HPI History of Present Illness Chief Complaint: Lower Extremity Injury Informant: patient Narrative Narrative: This patient has been having pain in the right ankle and swelling to the right knee to some degree for the past 2 months. It is been gradually getting worse. Has seen PCP and podiatry, had an ultrasound of the right lower extremity here that showed a superficial clot in one of his varicose veins but no DVT, has been on apixaban since before that because he has had clots in the past. Podiatry thought that this was tendinitis and so placed him in a boot and put him on anti-inflammatories, the latter had to be discontinued because he has a history of kidney issues and his other doctors do not want him on NSAIDs accordingly. He has developed no new symptoms such as fevers or chills, however the pain has gotten worse and the swelling in his calf is subsequently gotten worse. He denies any shortness of breath or chest pain or palpitations or syncope that is unexplained. Continues to take his apixaban. He states he was hurting so bad this morning that he cannot put any weight on it and it hurts just to have a sheet against my ankle. [facility] Medical History Lymphedema Postthrombotic syndrome of right lower extremity Sleep apnea Thrombophlebitis Venous insufficiency Home Medications lisinopril 5 mg tablet 5 mg PO DAILY 05/29/13 [History Last Taken Unknown] ondansetron 8 mg disintegrating tablet (Zofran ODT) 8 mg PO Q8H PRN PRN Nausea ##8 05/29/13 [Rx Last Taken Unknown] apixaban 5 mg tablet 1 tab PO BID 05/14/20 [History Last Taken Unknown] hydrocodone-acetaminophen 5-325mg 5mg-325mg 1 tab PO Q4H PRN PRN Pain 2 days #10 TABLETS 02/15/22 [Rx Last Taken Unknown] prednisone 10 mg tablet 10 mg PO UD #30 tabs 02/15/22 [Rx Last Taken Unknown] Allergy/AdvReac Type Severity Reaction Status Date / Time No Known Allergies Allergy Verified 05/14/20 06:46 Social History Smoking Status: Current every day smoker tobacco type: cigarettes ROS ROS ED Constitutional Constitutional ED: Denies chills or fever(s) Cardiovascular Cardiovascular: Denies chest pain or palpitations Respiratory/Chest Respiratory/Chest: Denies dyspnea or dyspnea on exertion Musculoskeletal Musculoskeletal: Reports as per HPI, extremity pain and other Details: swelling R calf ; Denies neck pain Integumentary Denies Abrasions, rash or wounds Neurologic Neurologic: Denies paresthesias or weakness EXAM Physical Exam Const Vital Signs: 02/15/22 11:45 Temperature 97.7 F L Temperature Source Temporal Pulse Rate 89 Respiratory Rate 16 Blood Pressure 136/89 H Blood Pressure Mean 104 Pulse Ox 95 Oxygen Delivery Method Room Air Positive well nourished and well developed General Appearance ED: well developed and NAD Neck full ROM and supple Back/Spine normal ROM and normal to inspection Extremity Extremity Narrative: Mild diffuse swelling below the right knee, there is erythema at the plantar aspect of both feet that is symmetric and a little more along with some dark discolored skin at the medial aspect of the right ankle but not laterally. No excessive warmth. Short arc range of motion without any difficulty but he cannot move it further than that due to pain and swelling. Neurovascularly intact distally right lower extremity. The calf is nontender except for 1 spot medially close to the knee where he indicates they found a superficial thrombosis and there are some varicose veins there I do not feel cord. Neuro oriented x3, no focal motor deficits and no sensory deficits noted Sensorium / Orientation: alert Psych mental status grossly normal and thought process normal Skin no wounds Rashes: no rashes MDM MDM MDM Narrative Medical decision making narrative: Patient is looking for an answer, he thinks there is something different going on. I advised that many of his symptoms could be related to gout, and joint infections present very similarly to gout oftentimes without the ability to differentiate without fluid from the joint. I think it is less likely that he has a septic arthritis since it has been 2 months and he has not had progression of anything that looks like an obvious infection without the need for antibiotics which she has not had. We discussed the pros and cons of pulling fluid out of the joint specially on a apixaban, however I recommend it. Patient consented. This was done see the procedure note. Results show white blood count 2500 mostly neutrophils, in addition to a negative preliminary for crystals. Culture is sent. Discussed with Dr. Pereyra on-call for podiatry. We discussed the test results, except for the ESR and CRP which are not yet returned for some reason, he agrees with trying the patient on prednisone as we do have a culture of the joint fluid sent, and have the patient follow-up closely right after the weekend in the office, return to the ER if for some reason he gets worse on the prednisone and/or develops a fever. He agrees that this amount of white blood cells in the joint fluid is inconsistent with acute septic arthritis. Discussed with the patient, we will also prescribe him some the for pain and recommend that he stay in the boot until he is seen by podiatry for further evaluation. He is comfortable with that plan. Lab Data Attestation: I reviewed the patient's lab results. Labs: Laboratory Results - last 24 hr 02/15/22 02/15/22 02/15/22 12:25 12:25 14:15 WBC 6.9 RBC 4.49 L Hgb 15.4 Hct 43.8 MCV 97.6 H MCH 34.3 H MCHC 35.2 RDW Std Deviation 46.9 H RDW Coeff of Kris 12.9 Plt Count 213 MPV 9.5 Immature Gran % (Auto) 0.100 Neut % (Auto) 75.2 H Lymph % (Auto) 13.8 L Garfield % (Auto) 9.3 Eos % (Auto) 1.3 Baso % (Auto) 0.3 Absolute Neuts (auto) 5.2 Absolute Lymphs (auto) 0.95 Nucleated RBC % 0 Sodium 141 Potassium 4.4 Chloride 111 H Carbon Dioxide 25.0 Anion Gap 5 BUN 22 H Creatinine 1.01 Estim Creat Clear Calc 84.32 Est GFR (MDRD) Af Amer 98 Est GFR (MDRD) Non-Af 81 BUN/Creatinine Ratio 21.8 H Glucose 101 Uric Acid 5.3 Calcium 9.1 Fluid Source Cancelled Fluid Color Cancelled Fluid Appearance Cancelled Fluid WBC Cancelled Fluid RBC Cancelled Fluid Tot Cell Count Cancelled Fld Polynuclear WBCs # Cancelled Fld Polynuclear WBCs % Cancelled Fluid Mononuclear WBCs Cancelled Fld Mononuclear WBCs % Cancelled Fluid Neutrophils Cancelled Fluid Lymphocytes Cancelled Fluid Monocytes Cancelled Fluid Plasma Cells Cancelled Fluid Macrophages Cancelled Fld Mesothelial Cells Cancelled Fluid Other Cells Cancelled Fluid Crystals SEE PATH REV Fluid Crystal Source SYNOVIAL Fl Crystal Path Review Will follow Fl Pathologist Comment Cancelled Fluid Comment 2 Cancelled Synovial Source KNEE Synovial Color Yellow Synovial Appearance Sl Cl Synovial Viscosity Mod. Viscous Synovial WBC 2.4920 H Synovial RBC 20 H Synovial Tot Cell Ct 2.5280 H Synov Polynuclear WBCs 1.682 Synov Mononuclear WBCs 0.810 Synovial Neutrophils 92 H Synovial Lymphocytes 4 Synovial Monocytes 4 Synovial Polynuclear % 67.5 Synovial Mononuclear % 32.[address] Comment May follow Radiography Diagnostic Testing: Clinical Impression(s) from Imaging Studies Ankle X-Ray 02/15/22 13:25 IMPRESSION: No acute bone or joint abnormality. Soft tissue swelling. Electronically Signed: Devin Rosas MD at 13:41 EDT , Procedures Other Procedures Procedure(s): Right ankle arthrocentesis: After informed consent, I prepped with isopropanol and injected 2 cc of plain 1% lidocaine medial anterior aspect of the joint. Then prepped again with Betadine and inserted a sterile 21-gauge needle just medial to the tibialis anterior tendon, through the anesthetized area. Found joint fluid, aspirated 2.5 cc, and withdrew the needle, no complications, no bleeding, bandage placed. Fluid is straw-colored, transparent, with a positive string sign. Tolerated well with no complications. Discharge Plan Triage Chief Complaint: Lower Extremity Injury ED Provider: Orlando Harper Dx/Rx/DC Orders Clinical Impression: Acute right ankle pain, Edema of right lower extremity, Arthritis of ankle, right Instructions: ED Arthralgia, ED Peripheral Edema, Unilateral Prescriptions: New prednisone 10 MG tablet 10 mg PO UD Qty: 30 0RF Rx Instructions: Take 4 tablets daily for 3 days, then 3 daily for 3 days, then 2 daily for 3 days, then 1 a day for 3 days hydrocodone-acetaminophen [hydrocodone-acetaminophen] 1 TABLET tablet 1 tab PO Q4H PRN PRN (Reason: Pain) 2 Days Qty: 10 0RF No Action lisinopril 5 MG tablet 5 mg PO DAILY ondansetron [Zofran ODT] 8 MG tablet,disintegrating 8 mg PO Q8H PRN PRN (Reason: Nausea) Qty: 8 0RF apixaban 5 MG tablet 1 tab PO BID Primary Care Provider: Nicole Bronson Referrals: Nicole Bronson MD [Primary Care Provider] - Denver Pereyra DPM [Med Staff - Active Staff] - 3-5 Days (call thursday AM for appt day/time, early week) Disposition Disposition: Home, Self Care
[2022-02-15 12:33] LABS: Absolute Lymphocyte Count 0.95 X10^3/uL (0.83-4.51); Absolute Neutrophil Count 5.2 X10^3/uL (2.0-7.7); Basophil# 0.02 X10^3/uL; Basophil% 0.3 % (0-1); Eosinophil# 0.09 X10^3/uL; Eosinophils% 1.3 % (0-5); Hematocrit 43.8 % (40-54); Hemoglobin 15.4 g/dL (13.0-16.5); Lymphocyte # 0.95 X10^3/ul (0.83-4.51); Lymphocyte % 13.8 % (19-41); Mean Corp Hgb Conc 35.2 g/dL (32-36); Mean Corpuscular Hgb 34.3 pg (27.0-32.0); Mean Corpuscular Volume 97.6 fL (80-94); Mean Platelet Vol. 9.5 fl (6.2-12.0); Monocyte# 0.64 X10^3/uL; Monocyte% 9.3 % (0-10); NRBC Flagged by Analyzer 0 % (0-5); Neutrophil # 5.17 X10^3/uL (2.7-7.7); Neutrophil % 75.2 % (47-70); Platelet Count 213 K/mm3 (150-450); RBC Distribution Width CV 12.9 % (11.6-14.6); RBC Distribution Width SD 46.9 fl (35.1-43.9); Red Blood Count 4.49 M/mm3 (4.6-6.2); White Blood Count 6.9 K/mm3 (4.4-11.0)
[2022-02-15 12:45] LABS: Anion Gap 5 (5-15); BUN 22 mg/dL (7-18); BUN/Creat Ratio 21.8 RATIO (10-20); Calcium,Total 9.1 mg/dL (8.5-10.1); Chloride 111 mmol/L (98-107); Creatinine, Serum 1.01 mg/dL (0.70-1.30); EST Glomerular Filtration Rate 81 mL/min (>60); Est Glom Filt Rate - Afr Amer 98 mL/min (>60); Estimated Creatinine Clearance 84.32 ml/min; Glucose 101 mg/dL (74-106); Potassium 4.4 mmol/L (3.5-5.1); Sodium Level 141 mmol/L (136-145); Uric Acid 5.3 mg/dL (3.5-7.2)
[2022-02-15] MEDS: Morphine 4 MG/ML Syringe IV (13:00)
--- NOTE | 2022-02-15 13:25 | RAD_ITS ---
EXAM: XR RIGHT ANKLE COMPLETE, 3 OR MORE VIEWS CLINICAL INDICATION: pain TECHNIQUE: Frontal, lateral and oblique views of the right ankle. This report was created using [employer] report generation technology. COMPARISON: None. FINDINGS: BONES/JOINTS: No acute fracture or subluxation. Plantar calcaneal spur noted. SOFT TISSUES: Diffuse soft tissue swelling. No radiopaque foreign body. RAD/Ankle min 3 Views IMPRESSION: No acute bone or joint abnormality. Soft tissue swelling. Electronically Signed: Devin Rosas MD at 13:41 EDT ,
[2022-02-15 14:47] LABS: AUTO B FLUID DILUENT BKGD CT WBC <0.1 RBC <0.01 (W<.1,R<.01); Appearance /Synovial Fluid Sl Cl (CLEAR); Color / Synovial Fluid Yellow (Pale Yellow); Pathologist Comment May follow; Source / Synovial Fluid KNEE; Source- Body Fluid SYNOVIAL; Synovial Fld Mononuclear WBC % 32.5 %; Synovial Fld Polynuclear WBC # 1.682 10^3/uL; Synovial Fld Polynuclear WBC % 67.5 %; Viscosity / Synovial Fluid Mod. Viscous (HIGH)
[2022-02-15 14:54] LABS: RBC /Synovial Fluid 20 /mm3 (0)
[2022-02-15 15:00] LABS: Body Fluid QC Type(s) BF1Q,BF2Q
[2022-02-15 15:08] LABS: Lymph 4 %; Monocyte /Synovial Fluid 4 %; Neutrophil 92 % (0-25)
[2022-02-15] MEDS: HYDROcodone Bitartrate/Apap 5/325 Tablet PO (15:42)
[2022-02-15] MEDS: predniSONE 20 MG Tablet 60 MG PO (15:42)
[2022-02-15 15:43] LABS: Erythrocyte Sedimentation Rate 20 mm/hr (0-20)
[2022-02-17 11:50] LABS: Pathologist Review Reviewed
== END 2022-02-15 15:48 | disposition home or self-care (01) ==
PROVIDERS: Emergency Provider Emergency Medicine; PCP Family Medicine; Visit Provider Emergency Medicine
DX: M25.571 Pain in right ankle and joints of right foot (principal); I87.001 Postthrombotic syndrome without complications of right lower extremity; M19.071 Primary osteoarthritis, right ankle and foot; M79.89 Other specified soft tissue disorders; R60.0 Localized edema; F17.210 Nicotine dependence, cigarettes, uncomplicated; Z79.01 Long term (current) use of anticoagulants; Z79.899 Other long term (current) drug therapy
CPT/HCPCS: 20605; 20610; 73610; 80048; 84550; 85025; 85652; 86140; 87070; 87075; 87205; 89050; 89051; 89060; 93971; 96374; 99284; A4216

== ENCOUNTER → 2022-06-04 | Outpatient (CLI) | payer OTHER, SELFPAY ==
--- NOTE | 2022-06-04 13:58 | RAD_ITS ---
STUDY: XR Knee Complete 4 Views or More 06/05/2022 6:50 PM REASON FOR EXAM: Male, 57 years old. pain TECHNIQUE: XR Knee Complete 4 Views or More LEFT COMPARISON: None FINDINGS: Normal visualized distal femur. Normal visualized proximal tibia and fibula. Normal proximal tibiofibular articulation. There is calcification in the joint space which may signify calcium pyrophosphate deposition disease. Normal medial femorotibial compartment. Normal lateral femorotibial compartment. Normal patellofemoral articulation. The soft tissue structures are unremarkable. RAD/Knee 4 or More Views IMPRESSION: There are no acute findings. Electronically Signed: Beni Vazquez MD at 18:53 EST ,
--- NOTE | 2022-06-04 13:58 | RAD_ITS ---
EXAM: XR BILATERAL HIPS WITH PELVIS WHEN PERFORMED, 2 VIEWS CLINICAL INDICATION: pain pain TECHNIQUE: Frontal view of the bilateral hips with pelvis when performed. This report was created using [employer] report generation technology. COMPARISON: CT scan abdomen and pelvis 05/14/2020. FINDINGS: BONES/JOINTS: There is mild degenerative arthrosis of the right hip. There is moderate to severe degenerative arthrosis of the left hip. No displaced fracture. No destructive or sclerotic lesions. Note that overlapping bowel shadows may however obscure fine detail. Sacroiliac joint is unremarkable. No widening of the pubic symphysis. SOFT TISSUES: Unremarkable. No soft tissue swelling or gas. RAD/Hips B/L min 2 views w/ Pelvis IMPRESSION: 1. Degenerative arthrosis of the hips, left greater than right. 2. No demonstrated fracture, dislocation, or destructive osseous lesion. Electronically Signed: Reginald Bland MD at 7:52 EST Reading Location ID and State: [facility] / [place] , Service support ,
== END | disposition home or self-care (01) ==
PROVIDERS: PCP Family Medicine; Visit Provider Family Medicine
DX: R52 Pain, unspecified (principal)
CPT/HCPCS: 73521; 73564

== ENCOUNTER → 2022-08-01 | Outpatient (CLI) | payer OTHER, SELFPAY ==
[2022-08-01 10:23] LABS: Absolute Lymphocyte Count 0.96 X10^3/uL (0.83-4.51); Absolute Neutrophil Count 3.1 X10^3/uL (2.0-7.7); Basophil# 0.02 X10^3/uL; Basophil% 0.4 % (0-1); Eosinophil# 0.09 X10^3/uL; Eosinophils% 1.9 % (0-5); Hematocrit 44.7 % (40-54); Lymphocyte # 0.96 X10^3/ul (0.83-4.51); Lymphocyte % 20.6 % (19-41); Mean Corp Hgb Conc 33.6 g/dL (32-36); Mean Corpuscular Volume 98.2 fL (80-94); Mean Platelet Vol. 9.7 fl (6.2-12.0); Monocyte# 0.44 X10^3/uL; Monocyte% 9.4 % (0-10); NRBC Flagged by Analyzer 0 % (0-5); Neutrophil # 3.14 X10^3/uL (2.7-7.7); Neutrophil % 67.5 % (47-70); Platelet Count 211 K/mm3 (150-450); RBC Distribution Width SD 47.1 fl (35.1-43.9); Red Blood Count 4.55 M/mm3 (4.6-6.2); White Blood Count 4.7 K/mm3 (4.4-11.0)
[2022-08-01 11:30] LABS: Anion Gap 2 (5-15); BUN 24 mg/dL (7-18); BUN/Creat Ratio 31.6 RATIO (10-20); Calcium,Total 8.9 mg/dL (8.5-10.1); Chloride 108 mmol/L (98-107); Creatinine, Serum 0.76 mg/dL (0.70-1.30); EST Glomerular Filtration Rate 112 mL/min (>60); Est Glom Filt Rate - Afr Amer 136 mL/min (>60); Glucose 101 mg/dL (74-106); Potassium 4.2 mmol/L (3.5-5.1); Sodium Level 135 mmol/L (136-145)
== END | disposition home or self-care (01) ==
PROVIDERS: PCP Family Medicine; Referring Provider Physician Assistant Surgical; Visit Provider Physician Assistant Surgical
DX: Z01.818 Encounter for other preprocedural examination (principal); Z01.810 Encounter for preprocedural cardiovascular examination
CPT/HCPCS: 36415; 80048; 85025

== ENCOUNTER → 2022-08-07 | Outpatient (CLI) | payer OTHER, SELFPAY ==
--- NOTE | 2022-08-07 06:42 | EKG12_ITS ---
Test Reason : PREOP Blood Pressure : / mmHG Vent. Rate : 072 BPM Atrial Rate : 072 BPM P-R Int : 176 ms QRS Dur : 092 ms QT Int : 376 ms P-R-T Axes : 074 066 060 degrees QTc Int : 411 ms Normal sinus rhythm Normal ECG Confirmed by RUY SMART, DORA ([id number]), medical transcription editor PUJA LYNCH ([id number]) on 08/11/2022 10:56:45 AM Referred By: Reynaldo Watters Confirmed By:DORA REDMOND MD
== END | disposition home or self-care (01) ==
PROVIDERS: PCP Family Medicine; Referring Provider Physician Assistant Surgical; Visit Provider Physician Assistant Surgical
DX: Z01.818 Encounter for other preprocedural examination (principal); Z01.810 Encounter for preprocedural cardiovascular examination
CPT/HCPCS: 93005

== ENCOUNTER → 2023-01-22 | Outpatient (CLI) | payer OTHER, SELFPAY ==
[2023-01-22 17:41] LABS: Absolute Lymphocyte Count 1.52 X10^3/uL (0.83-4.51); Absolute Neutrophil Count 3.9 X10^3/uL (2.0-7.7); Basophil# 0.03 X10^3/uL; Basophil% 0.5 % (0-1); Eosinophil# 0.11 X10^3/uL; Eosinophils% 1.8 % (0-5); Hematocrit 45.7 % (40-54); Hemoglobin 15.4 g/dL (13.0-16.5); Lymphocyte # 1.52 X10^3/ul (0.83-4.51); Lymphocyte % 24.8 % (19-41); Mean Corp Hgb Conc 33.7 g/dL (32-36); Mean Corpuscular Hgb 33.3 pg (27.0-32.0); Mean Corpuscular Volume 98.7 fL (80-94); Mean Platelet Vol. 9.9 fl (6.2-12.0); Monocyte# 0.53 X10^3/uL; Monocyte% 8.7 % (0-10); NRBC Flagged by Analyzer 0 % (0-5); Neutrophil # 3.92 X10^3/uL (2.7-7.7); Platelet Count 230 K/mm3 (150-450); RBC Distribution Width CV 12.9 % (11.6-14.6); RBC Distribution Width SD 46.7 fl (35.1-43.9); Red Blood Count 4.63 M/mm3 (4.6-6.2); White Blood Count 6.1 K/mm3 (4.4-11.0)
[2023-01-22 18:13] LABS: Protein, Urine (Random) 85.3 mg/dL (<11.9); Protein:Creat Ratio 400 mg/g CRE (0-200)
[2023-01-22 18:22] LABS: PSA,Total - Annual Screen 0.85 ng/mL (0.00-4.00)
[2023-01-22 20:53] LABS: Albumin, Serum 3.6 g/dL (3.2-5.0); BUN 19 mg/dL (7-18); Calcium,Total 9.2 mg/dL (8.5-10.1); Chloride 112 mmol/L (98-107); Creatinine, Serum 0.73 mg/dL (0.70-1.30); EST Glomerular Filtration Rate 117 mL/min (>60); Est Glom Filt Rate - Afr Amer 142 mL/min (>60); Glucose 96 mg/dL (74-106); Potassium 4.1 mmol/L (3.5-5.1); Sodium Level 139 mmol/L (136-145)
== END | disposition home or self-care (01) ==
PROVIDERS: Internal Medicine Nephrology; PCP Family Medicine; Visit Provider Family Medicine
DX: Z00.00 Encounter for general adult medical examination without abnormal findings (principal); I10 Essential (primary) hypertension
CPT/HCPCS: 36415; 80069; 82570; 84153; 84156; 85025; G0103

== ENCOUNTER → 2023-07-15 | Outpatient (CLI) | payer OTHER, SELFPAY ==
--- NOTE | 2023-07-15 17:52 | CT_ITS ---
We are attempting to reach an attending provider to discuss findings. An addendum with communication details will be sent when the communication is complete. STUDY: LOW DOSE CT LUNG CANCER SCREENING REASON FOR EXAM: Male, 58 years old. SMOKER RADIATION DOSAGE (If Supplied By Facility): CTDIvol = ( 4.02 ) mGy, DLP = ( 147.48 ) mGycm TECHNIQUE: No contrast was administered. Low dose technique was utilized (average mAS-38 and kVp 120). 1.25 mm axial source images with a slice interval of 1.25-mm were reconstructed in lung windows. 2.5 mm axial source images with a slice interval of 2.5-mm were reconstructed in lung windows. 5.0 mm axial source images with a slice interval of 5.0-mm were reconstructed in soft tissue windows. Nodule measured using lung windows on PACS and/or independent workstation with automated measurement of minimum and maximum diameter. Nodule measurement reported as average diameter rounded to the nearest whole number. Growth is defined as an increase ins size of greater than 1.5 mm. COMPARISON: None. FINDINGS: Total lung nodules (excluding granulomas): There is a 3.49 x 2.14 cm spiculated mass in the medial aspect and superior segment of the right lower lobe best seen on image 141/268 series 2 that is consistent with a malignant neoplasm until proven otherwise. A second partially spiculated nodule is present in the medial/retrocardiac region and middle one third aspect of the right lower lobe seen on image 166/268 series 2, also concerning for a malignant neoplasm/metastasis. No additional nodules or spiculated lesions are seen in either lung on the current study. A small calcified pleural plaque is present at the anterior most inferior aspect of the right middle lobe. Emphysema: Mild to moderate diffuse cystic emphysematous changes are present throughout both lungs. Endobronchial lesion: None Aorta: No aneurysmal dilatation Scattered interstitial fibrotic opacities and scarring is demonstrated in both lungs.. There is no demonstrated pleural abnormality. Normal heart size and pericardium. There are calcifications of the coronary arteries. Normal mediastinum. Normal hilar regions. Normal unenhanced pulmonary arteries. There is atherosclerotic calcification of the aortic arch with tortuosity and elongation of the aortic arch and descending thoracic aorta. There are multi-level degenerative changes of the thoracic spine. No visualized lytic or blastic lesions of the osseous structures on the current study. No soft tissue windows were acquired therefore the upper abdominal structures included cannot be evaluated. CT/Low Dose CT Lung Screening IMPRESSION: 1. Spiculated malignant appearing mass in the medial and superior segment of the right lower lobe measuring 3.49 x 2.14 cm, see image 141/268 series 2 2. A second partially spiculated nodule is present in the medial/retrocardiac region and middle one third aspect of the right lower lobe seen on image 166/268 series 2, also concerning for a malignant neoplasm/metastasis. No additional nodules or spiculated lesions are seen in either lung on the current study. 3. Lung-RADS category 4B - Chest CT with or without contrast, PET/CT and/or tissue sampling can be obgtained depending on the probability of maligancy and comorbidities. 4. Thoracic surgery/pulmonology consult recommended 5. Mild to moderate cystic emphysematous changes throughout both lungs with interstitial scarring, and hyperinflation/mild barrel chest deformity. IMPORTANT NOTES FOR USE: ACR Lung-RADS Version 1.0 Assessment Categories Release Date: August 15, 2013 Category: Coded 0-4 bases on nodule(s) with highest degree of suspicion. Negative screen is defined as categories 1 and 2; a positive screen is defined as categories 3 and 4. Category 3 and 4A nodules that are unchanged on interval CT should be coded as category 2, and individuals returned to screening in 12 months. Category 4X: Category 3 or 4 nodules with additional imaging findings that increase the suspicion of lung cancer, such as spiculation, GGN that doubles in size in 1 year, enlarged lymph notes, etc. Category Modifiers: S (significant finding unrelated to lung cancer) and C (prior history of treated lung cancer) may be added to the 0-4 Lung-RADS Electronically Signed: Cricket Jin MD at 12:22 EDT ,
== END | disposition home or self-care (01) ==
LOC: CT 17:45
PROVIDERS: PCP Family Medicine; Referring Provider Internal Medicine Pulmonary Disease; Visit Provider Internal Medicine Pulmonary Disease
DX: Z12.2 Encounter for screening for malignant neoplasm of respiratory organs (principal); Z87.891 Personal history of nicotine dependence
CPT/HCPCS: 71271

== ENCOUNTER → 2024-01-25 | Outpatient (CLI) | payer OTHER, SELFPAY ==
[2024-01-25 18:12] LABS: Protein, Urine (Random) 20.1 mg/dL (<11.9); Protein:Creat Ratio 158 mg/g CRE (0-200)
[2024-01-25 18:27] LABS: Albumin, Serum 2.7 g/dL (3.2-5.0); BUN 21 mg/dL (7-18); Calcium,Total 9.4 mg/dL (8.5-10.1); Chloride 103 mmol/L (98-107); Creatinine, Serum 0.91 mg/dL (0.70-1.30); EST Glomerular Filtration Rate 91 mL/min (>60); Est Glom Filt Rate - Afr Amer 110 mL/min (>60); Glucose 123 mg/dL (74-106); Phosphorus 3.3 mg/dL (2.5-4.9); Potassium 4.3 mmol/L (3.5-5.1); Sodium Level 136 mmol/L (136-145)
== END | disposition home or self-care (01) ==
PROVIDERS: PCP Family Medicine; Referring Provider Internal Medicine Nephrology; Visit Provider Internal Medicine Nephrology
DX: R80.9 Proteinuria, unspecified (principal)
CPT/HCPCS: 36415; 80069; 82570; 84156

== ENCOUNTER → 2024-12-23 | Outpatient (CLI) | payer OTHER, SELFPAY ==
[2024-12-23 18:35] LABS: PSA,Total - Annual Screen 1.18 ng/mL (0.02-4.00)
== END | disposition home or self-care (01) ==
LOC: MFPLAB 16:29
PROVIDERS: PCP Family Medicine; Visit Provider Family Medicine
DX: Z13.1 Encounter for screening for diabetes mellitus (principal); Z12.5 Encounter for screening for malignant neoplasm of prostate
CPT/HCPCS: 36415; 83036; 84153; G0103

== ENCOUNTER → 2024-12-27 | Outpatient (CLI) | payer OTHER, SELFPAY ==
[2024-12-27 11:57] LABS: Cholesterol 198 mg/dL (<=200); Low Density Lipoprotein Calc. 117 mg/dL; Triglycerides 104 mg/dL; Very Low Density Lipoprotein 21 mg/dL (5-40); cholesterol:hdl ratio screen 3.30
== END | disposition home or self-care (01) ==
LOC: MTLAB 07:14
PROVIDERS: PCP Family Medicine; Referring Provider Family Medicine; Visit Provider Family Medicine
DX: Z13.220 Encounter for screening for lipoid disorders (principal)
CPT/HCPCS: 36415; 80061

== ENCOUNTER → 2025-01-23 | Outpatient (CLI) | payer OTHER, SELFPAY ==
[2025-01-23 18:54] LABS: Hematocrit 39.2 % (40-54); Hemoglobin 13.3 g/dL (13.0-16.5); Immature Granulocytes Count 0.020 X10^3/uL (0.0-0.0); Mean Corp Hgb Conc 33.9 g/dL (32-36); Mean Corpuscular Volume 104.8 fL (80-94); Mean Platelet Vol. 9.7 fl (6.2-12.0); NRBC Flagged by Analyzer 0 % (0-5); Platelet Count 189 K/mm3 (150-450); RBC Distribution Width CV 14.2 % (11.6-14.6); RBC Distribution Width SD 54.6 fl (35.1-43.9); Red Blood Count 3.74 M/mm3 (4.6-6.2); White Blood Count 4.8 K/mm3 (4.4-11.0)
[2025-01-23 19:41] LABS: Creatinine, Urine (random) 100.00 mg/dL (39.00-259.00); Protein, Urine (Random) 10.0 mg/dL (0.0-12.0); Protein:Creat Ratio 100 mg/g CRE (0-200)
[2025-01-23 21:26] LABS: Albumin, Serum 3.8 g/dL (3.5-5.0); Anion Gap 13 (5-15); BUN 28 mg/dL (4-19); BUN/Creat Ratio 28.7 RATIO (10-20); Calcium,Total 9.2 mg/dL (7.6-11.0); Carbon Dioxide 21.3 mmol/L (21.0-32.0); Chloride 105 mmol/L (98-108); Glucose 102 mg/dL (70-99); Potassium 4.3 mmol/L (3.3-5.1)
== END | disposition home or self-care (01) ==
LOC: MTLAB 16:21
PROVIDERS: PCP Family Medicine; Referring Provider Family Medicine; Visit Provider Family Medicine
DX: R80.9 Proteinuria, unspecified (principal)
CPT/HCPCS: 36415; 80069; 82570; 84156; 85025